=== PATIENT | female | born 1960 | race Caucasian/White ===

== ENCOUNTER 2018-11-10 03:41 | Emergency (ER) | payer OTHER, SELFPAY ==
[2018-11-10 03:45] VITALS: BP 155/85; PULSE 76; RESP 18; TEMP 37.1; O2SAT 99
--- NOTE | 2018-11-10 03:59 | W.ED.GENAD ---
Discharge Plan Disposition Patient Disposition: HOME Condition: Good Discharge Details Chief Complaint: Abd Prob Clinical Impression: Calculus of proximal left ureter Primary Care Provider: Edson Hicks ED Provider: Crow Saldana Home Meds and New Rx's Prescriptions: New ibuprofen 600 mg tablet 600 mg PO QID Qty: 20 RF: 0 hydrocodone-acetaminophen 5-300 mg tablet 1 tab PO Q4H PRN (Reason: pain) Qty: 10 RF: 0 ondansetron 4 mg tablet,disintegrating 4 mg PO QID PRN (Reason: nausea and vomiting) Qty: 10 RF: 0 Continued calcium carbonate-vitamin D3 1 EACH tablet 1 tab PO DAILY RF: 0 L.acidoph, paracasei,B. lactis 1 EACH capsule 1 cap PO DAILY RF: 0 cetirizine 10 mg Tablet 10 mg PO DAILY RF: 0 Discharge Instructions Instructions: Renal Colic (ED) Additional Instructions: Please strain your urine over the weekend. Stay hydrated. Take ibuprofen [id number]. Use hydrocodone/acetaminophen for breakthrough pain. Use ondansetron for nausea and vomiting. Follow-up with Dr. Millard call Monday for appointment. Return to the ED if you develop fever, uncontrolled pain, persistent vomiting. Referrals: Julio C Millard MD [ [facility] STAFF PHYSICIAN] - Medical Decision Making Patient with acute onset of left flank pain. Reports it is sharp and severe and she is unable to get comfortable. Highly suggestive of kidney stone. No prior history of kidney stones. IV established and fluids started. Toradol and Zofran given. CBC and chemistry obtained. Urinalysis and CT stone study ordered. 6:00 -patient arrives back from CAT scan much more comfortable. She has no pain. CBC and chemistries are unremarkable. CT scan shows a left proximal ureteral stone measuring approximately 4 mm with mild to moderate hydronephrosis. Urinalysis eventually obtained and shows no sign of infection. Patient has remained pain-free after Toradol. Patient will be discharged home with a strainer. She will be asked to follow-up with Dr. Millard. She is going to use ibuprofen qhnioz-wxd-cvoky for the weekend to try to control the pain. I will give her prescription for hydrocodone/acetaminophen for severe pain. She will use this only if necessary. I did review prescription monitoring database in which she has no entries. She is given the State information sheet and informed consent signed. We will also give her prescription for ondansetron ODT. She does not wish to take Flomax after discussion of its use and side effects. Patient to return to ED if she develops fever, uncontrolled pain, persistent vomiting. HPI General Mode of arrival: ambulatory. Date/Time Provider Initiated Documentation: 11/10/18 03:42. Limitations to Documentation: no limitations. Information obtained by: patient. HPI Narrative: Patient presents to ED with onset of left flank pain that woke her up this morning. Pain is described as severe. She cannot get comfortable. There is some radiation to the back. She has nausea but no vomiting. She had some sweats and chills. She has some urgency but no dysuria or hematuria. She has had UTIs in the distant past. She has never had a kidney stone. She is otherwise healthy. Finally came in after a couple of hours of discomfort and not being able to get comfortable at home. Related Data Home Medications Medication Instructions Recorded Confirmed L.acidoph, paracasei,B. lactis 1 cap PO DAILY 07/14/15 11/10/18 calcium carbonate-vitamin D3 1 tab PO DAILY 07/14/15 11/10/18 cetirizine 10 mg PO DAILY 11/10/18 11/10/18 hydrocodone-acetaminophen 1 tab PO Q4H PRN #10 tab 11/10/18 ibuprofen 600 mg PO QID #20 tab 11/10/18 ondansetron 4 mg PO QID PRN #10 tab 11/10/18 Previous Rx's Medication Instructions Recorded hydrocodone-acetaminophen 1 tab PO Q4H PRN #10 tab 11/10/18 ibuprofen 600 mg PO QID #20 tab 11/10/18 ondansetron 4 mg PO QID PRN #10 tab 11/10/18 Allergies Allergy/AdvReac Type Severity Reaction Status Date / Time levofloxacin AdvReac Unknown Agitation Unverified 10/29/15 14:55 Sulfa (Sulfonamide AdvReac Unknown Headache Unverified 10/29/15 14:55 Antibiotics) General Stated Complaint: Abd Prob WALDO: 3 Review of Systems Review of Systems 04/22 Review of Systems completed and is negative except as stated above in HPI (Systems reviewed: Const, Eyes, ENT, Resp, CV, GI, , MSK, Skin, Neuro) PFSH Surgical History section Social History Smoking/Tobacco Use Status: Never Alcohol Intake: never Drug use: Never Do you feel safe at home: Yes Do you feel safe in your relationship?: Yes Exam Narrative Exam Narrative: Vitals: A little hypertensive likely from discomfort. Afebrile. Const: WDWN female looks uncomfortable but not in distress. HEENT: NC/AT. Normal facial exam. Eyes: Normal conjunctiva and sclera. Neck: Supple. Trachea midline. Lungs: Normal respiratory effort. Lungs are clear. Cor: RRR without murmur/gallop. Good radial pulses. GI: Soft. NT/ND. No guarding or rebound. Back: Mild left CVAT. Neuro: A+O x 3. CN grossly in tact. Good strength and no focal deficit. Ext: No C/C/E. No deformity or tenderness. Skin: Warm and dry without rash. Course Vital Signs Temperature 98.8 F 11/10/18 03:45 Pulse 76 11/10/18 03:45 Respiratory Rate 18 11/10/18 03:45 Blood Pressure 155/85 H 11/10/18 03:45 Pulse Oximetry 99 11/10/18 03:45 Temperature 98.8 F 11/10/18 03:45 Temperature Source Tympanic 11/10/18 03:45 Pulse 76 11/10/18 03:45 Respiratory Rate 18 11/10/18 03:45 Respiratory Effort 11/10/18 03:45 Blood Pressure 155/85 H 11/10/18 03:45 Pulse Oximetry 99 11/10/18 03:45 Oxygen Delivery Method Room Air 11/10/18 03:45 Oxygen Flow Rate 0 11/10/18 03:45 Pain Level 9 11/10/18 03:45
--- NOTE | 2018-11-10 04:03 | ED.GENADUL_ITS ---
Discharge Plan Disposition Patient Disposition: HOME Condition: Good Discharge Details Chief Complaint: Abd Prob Clinical Impression: Calculus of proximal left ureter Primary Care Provider: Edson Hicks ED Provider: Crow Saldana Home Meds and New Rx's Prescriptions: New ibuprofen 600 mg tablet 600 mg PO QID Qty: 20 RF: 0 hydrocodone-acetaminophen 5-300 mg tablet 1 tab PO Q4H PRN (Reason: pain) Qty: 10 RF: 0 ondansetron 4 mg tablet,disintegrating 4 mg PO QID PRN (Reason: nausea and vomiting) Qty: 10 RF: 0 Continued calcium carbonate-vitamin D3 1 EACH tablet 1 tab PO DAILY RF: 0 L.acidoph, paracasei,B. lactis 1 EACH capsule 1 cap PO DAILY RF: 0 cetirizine 10 mg Tablet 10 mg PO DAILY RF: 0 Discharge Instructions Instructions: Renal Colic (ED) Additional Instructions: Please strain your urine over the weekend. Stay hydrated. Take ibuprofen [id number]-[id number]. Use hydrocodone/acetaminophen for breakthrough pain. Use ondansetron for nausea and vomiting. Follow-up with Dr. Millard call Monday for appointment. Return to the ED if you develop fever, uncontrolled pain, persistent vomiting. Referrals: Julio C Millard MD [ [facility] STAFF PHYSICIAN] - Medical Decision Making Patient with acute onset of left flank pain. Reports it is sharp and severe and she is unable to get comfortable. Highly suggestive of kidney stone. No prior history of kidney stones. IV established and fluids started. Toradol and Zofran given. CBC and chemistry obtained. Urinalysis and CT stone study o rdered. 6:00 -patient arrives back from CAT scan much more comfortable. She has no pain. CBC and chemistries are unremarkable. CT scan shows a left proximal ureteral stone measuring approximately 4 mm with mild to moderate hydronephrosis. Urinalysis eventually obtained and shows no sign of infection. Patient has remained pain-free after Toradol. Patient will be discharged home with a strainer. She will be asked to follow-up with Dr. Millard. She is going to use ibuprofen racdmi-ngr-obxlj for the weekend to try to control the pain. I will give her prescription for hydrocodone/acetaminophen for severe pain. She will use this only if necessary. I did review prescription monitoring database in which she has no entries. She is given the State information sheet and informed consent signed. We will also give her prescription for ondansetron ODT. She does not wish to take Flomax after discussion of its use and side effects. Patient to return to ED if she develops fever, uncontrolled pain, persistent vomiting. HPI General Mode of arrival: ambulatory . Date/Time Provider Initiated Documentation: 11/10/18 03:42 . Limitations to Documentation: no limitations . Information obtained by: patient . HPI Narrative: Patient presents to ED with onset of left flank pain that woke her up this morning. Pain is described as severe. She cannot get comfortable. There is some radiation to the back. She has nausea but no vomiting. She had some sweats and chills. She has some urgency but no dysuria or hematuria. She has had UTIs in the distant past. She has never had a kidney stone. She is otherwise healthy. Finally came in after a couple of hours of discomfort and not being able to get comfortable at home. Related Data Home Medications Medication Instructions Recorded Confirmed L.acidoph, paracasei,B. lactis 1 cap PO DAILY 07/14/15 11/10/18 calcium carbonate-vitamin D3 1 tab PO DAILY 07/14/15 11/10/18 cetirizine 10 mg PO DAILY 11/10/18 11/10/18 hydrocodone-acetaminophen 1 tab PO Q4H PRN #10 tab 11/10/18 ibuprofen 600 mg PO QID #20 tab 11/10/18 ondansetron 4 mg PO QID PRN #10 tab 11/10/18 Previous Rx's Medication Instructions Recorded hydrocodone-acetaminophen 1 tab PO Q4H PRN #10 tab 11/10/18 ibuprofen 600 mg PO QID #20 tab 11/10/18 ondansetron 4 mg PO QID PRN #10 tab 11/10/18 Allergies Allergy/AdvReac Type Severity Reaction Status Date / Time levofloxacin AdvReac Unknown Agitation Unverified 10/29/15 14:55 Sulfa (Sulfonamide AdvReac Unknown Headache Unverified 10/29/15 14:55 Antibiotics) General Stated Complaint: Abd Prob WALDO: 3 Review of Systems Review of Systems 04/22 Review of Systems completed and is negative except as stated above in HPI (Systems reviewed: Const, Eyes, ENT, Resp, CV, GI, , MSK, Skin, Neuro) PFSH Surgical History section Social History Smoking/Tobacco Use Status: Never Alcohol Intake: never Drug use: Never Do you feel safe at home: Yes Do you feel safe in your relationship?: Yes Exam Narrative Exam Narrative: Vitals: A little hypertensive likely from discomfort. Afebrile. Const: WDWN female looks uncomfortable but not in distress. HEENT: NC/AT. Normal facial exam. Eyes: Normal conjunctiva and sclera. Neck: Supple. Trachea midline. Lungs: Normal respiratory effort. Lungs are clear. Cor: RRR without murmur/gallop. Good radial pulses. GI: Soft. NT/ND. No guarding or rebound. Back: Mild left CVAT. Neuro: A+O x 3. CN grossly in tact. Good strength and no focal deficit. Ext: No C/C/E. No deformity or tenderness. Skin: Warm and dry without rash. Course Vital Signs Temperature 98.8 F 11/10/18 03:45 Pulse 76 11/10/18 03:45 Respiratory Rate 18 11/10/18 03:45 Blood Pressure 155/85 H 11/10/18 03:45 Pulse Oximetry 99 11/10/18 03:45 Temperature 98.8 F 11/10/18 03:45 Temperature Source Tympanic 11/10/18 03:45 Pulse 76 11/10/18 03:45 Respiratory Rate 18 11/10/18 03:45 Respiratory Effort 11/10/18 03:45 Blood Pressure 155/85 H 11/10/18 03:45 Pulse Oximetry 99 11/10/18 03:45 Oxygen Delivery Method Room Air 11/10/18 03:45 Oxygen Flow Rate 0 11/10/18 03:45 Pain Level 9 11/10/18 03:45
[2018-11-10] MEDS: Normal Saline 1,000 ML 1000 ML IV (04:09)
[2018-11-10] MEDS: Ondansetron 4 MG/2 ML VIAL IVP (04:11)
[2018-11-10] MEDS: Ketorolac 30 MG/ML VIAL IVP (04:12)
[2018-11-10 04:23] LABS: Abs Immature Grans 0.02 k/cumm (0.0-0.09); Absolute Basophil Count 0.03 k/cumm (0.0-0.2); Absolute Eosinophil Count 0.04 k/cumm (0.0-0.7); Absolute Lymphocyte Count 1.19 k/cumm (1.2-3.4); Absolute Monocyte Count 0.41 k/cumm (0.11-0.7); Absolute Neutrophil Count 4.57 k/cumm (1.2-6.7); Basophils % 0.5; Eosinophils % 0.6; HCT 42.9 % (36.0-46.0); HGB 14.7 g/dL (12.0-15.5); Immature Grans % 0.3; Mean Corp. HGB Concentration 34.3 g/dL (32.0-36.0); Mean Corpuscular Hemoglobin 30.2 pg (27.0-33.0); Mean Corpuscular Volume 88.3 fL (80-95); Mean Platelet Volume 10.9 fL (8.0-11.0); Monocytes % 6.5; Neutrophils % 73.1; Platelet Count 198 x1000/uL (130-400); RBC 4.86 m/cumm (4.00-5.20); RBC Distribution Width 11.9 % (11.7-14.6); White Blood Cell Count 6.26 k/cumm (4.4-10.8)
--- NOTE | 2018-11-10 04:23 | DI.CT_ITS ---
SYMPTOM/DIAGNOSIS: LT FLANK PAIN ABDOMEN AND PELVIC CT: CT examination of the abdomen and pelvis was performed without contrast administration. Images obtained through the lung bases are unremarkable. Visualized portions of the liver and spleen appear intact. Pancreas is unremarkable in appearance. Gallbladder and bile ducts are CT normal. Small fat containing umbilical hernia noted. No other significant abdominal wall hernia is seen. No abdominal or pelvic adenopathy is seen. Normal aortic diameter noted. Normal appendix noted. No evidence of diverticulitis or bowel obstruction. [facility] structures appear intact. Right kidney and adrenal are unremarkable. No right ureteral calcification. On the left, there is a 4 mm. in diameter, obstructing proximal left ureteral stone with moderate hydronephrosis resulting. Left adrenal is unremarkable. CONCLUSION: Obstructing 4 mm. proximal stone on the left causing mild to moderate hydronephrosis.
--- NOTE | 2018-11-10 04:29 | DI.VRAD_ITS ---
EXAM: CT Abdomen and Pelvis Without Contrast EXAM DATE/TIME: 11/10/2018 4:00 AM CLINICAL HISTORY: 58 years old, female; Abdominal pain; Flank; Left TECHNIQUE: Imaging protocol: Axial computed tomography images of the abdomen and pelvis without contrast. Coronal and sagittal reformatted images were created and reviewed. Radiation optimization: All CT scans at this facility use at least one of these dose optimization techniques: automated exposure control; mA and/or kV adjustment per patient size (includes targeted exams where dose is matched to clinical indication); or iterative reconstruction. COMPARISON: No relevant prior studies available. FINDINGS: ABDOMEN: Liver: No suspicious lesions. Gallbladder and bile ducts: No acute or concerning findings. Pancreas: Unremarkable. Spleen: No suspicious lesions. Adrenals: Unremarkable. No suspicious nodule. Kidneys and ureters: 4 mm transverse diameter stone proximal left ureter causing [id number]-[id number] hydronephrosis. Stomach and bowel: Unremarkable. No inflammed or dilated loops. Appendix: No evidence of appendicitis. PELVIS: Bladder: Unremarkable as visualized. Reproductive: Unremarkable as visualized. ABDOMEN and PELVIS: Intraperitoneal space: No free air. No significant fluid collection. Bones/joints: No acute fracture. No dislocation. Soft tissues: Unremarkable. Vasculature: Unremarkable. Lymph nodes: Unremarkable. IMPRESSION: 4 mm stone proximal left ureter causing efbv-us-xmcboleo hydronephrosis. Dictated and Authenticated by: Sigifredo Taylor MD. Ordering:MONCHO Maria MD
[2018-11-10 04:30] LABS: Anion Gap 5.4 mmol/L (3-11); BUN 23 mg/dL (7-18); CO2 31.6 mmol/L (21.0-32.0); CREATININE 0.92 mg/dL (0.55-1.02); Calcium 9.4 mg/dL (8.5-10.1); Chloride 102 mmol/L (98-107); Glucose 144 mg/dL (70-100); Sodium 139 mmol/L (136-145)
[2018-11-10 05:26] LABS: Bilirubin Negative (Negative); Blood Large (Negative); Clarity Clear; Glucose Negative (Negative); Ketones Negative (Negative); Leukocyte Esterase Negative (Negative); Nitrite Negative (Negative); Urobilinogen 0.2 EU/dL (Up TO 0.2); pH 7.5 (5-8)
[2018-11-10 05:28] LABS: Bacteria Negative HPF (Negative); C & S Indicated? No; Casts Negative LPF (Negative); Crystals Negative HPF (Negative); Epithelial Cells Negative HPF (Negative); Mucus Negative (Negative); WBC 0-2 HPF (0-5)
[2018-11-10 06:14] VITALS: BP 128/72; PULSE 64; RESP 18; O2SAT 96
--- NOTE | 2018-11-10 06:15 | NUR.NOTE ---
Nursing Note: DC IV intact bleeding controlled. Discussed discharge instructions, Rx/OTC meds, strainer use, and follow up care with pt. Pt verbalized an understanding. Pt ambulated out the door with steady gait.
== END 2018-11-10 06:14 | disposition home or self-care (01) ==
PROVIDERS: Emergency Provider Emergency Medicine; PCP Family Medicine
DX: N13.2 Hydronephrosis with renal and ureteral calculous obstruction (principal)
CPT/HCPCS: 36415; 80048; 96361; 96374; 96375; 99284; 74176; 81003; 81015; 85025; J1885; J2405

== ENCOUNTER → 2018-11-15 14:06 | Outpatient (BNVA) | payer OTHER, SELFPAY | PROVIDERS: PCP Family Medicine; Visit Provider Urology | DX: N20.1 Calculus of ureter (principal); N13.30 Unspecified hydronephrosis | CPT/HCPCS: 99203; 99214 ==

== ENCOUNTER 2018-12-07 01:33 | Outpatient (CLI) | payer OTHER, SELFPAY ==
--- NOTE | 2018-12-07 08:08 | DI.RAD_ITS ---
SYMPTOM/DIAGNOSIS: CHECK PROGRESSION OF STONE, N20.1, LT URETERAL STONE KUB: Comparison CT scan is 11/10/18. On the supine view of the abdomen, there is an ovoid density projected over the lateral aspect of the left L 4 transverse process which may represent the ureteral stone. It does appear to be located distally to the CT scan from 11/10/18. Calcifications in the pelvis appear stable and are consistent with phleboliths. No organomegaly or bowel obstruction is seen. There is a small amount of stool retained throughout the colon.
== END 2018-12-07 01:53 ==
PROVIDERS: PCP Family Medicine; Visit Provider Urology
DX: N20.1 Calculus of ureter (principal)
CPT/HCPCS: 74018

== ENCOUNTER 2018-12-10 09:01 | Day surgery (SDC) | payer OTHER, SELFPAY ==
[2018-12-10 09:33] VITALS: BP 148/90; PULSE 69; RESP 16; TEMP 35.9; O2SAT 90
[2018-12-10] MEDS: Lactated Ringers 1,000 ML 80 ML IV (10:03)
--- NOTE | 2018-12-10 10:21 | DI.RAD_ITS ---
SYMPTOMS/DIAGNOSIS: HYDRONEPHROSIS DUE TO LT URETERAL STONE C-ARM FLUOROSCOPY: Fluoroscopy Time: 21.5sec,4.88mgy C-arm fluoroscopy was utilized by Dr. Millard. Please see Dr. Millard's procedure note. Hardcopies show placement of left ureteral stent.
[2018-12-10] MEDS: ceFAZolin 1 GM/50 ML BAG IVPB (10:52)
[2018-12-10] MEDS: Lidocaine 2% Jelly 6 ML SYR (10:55)
[2018-12-10] MEDS: Omnipaque 300 MG/ML 50 ML BTL (11:00)
--- NOTE | 2018-12-10 11:40 | W.PM.DSUDISC ---
Discharge Plan Disposition Patient Disposition: HOME Condition: Stable Discharge Details Attending Provider: Julio C Millard Primary Care Provider: None,None Home Meds and New Rx's Prescriptions: No Action hydrocodone-acetaminophen [Vicodin] 5-300 mg tablet 1 - 2 tab PO Q6H MDD 8 PRN (Reason: pain) Qty: 20 RF: 0 ondansetron 4 mg tablet,disintegrating 4 mg PO QID PRN (Reason: nausea and vomiting) Qty: 10 RF: 0 ibuprofen 600 mg tablet 600 mg PO QID Qty: 20 RF: 0 calcium carbonate-vitamin D3 1 EACH tablet 1 tab PO DAILY RF: 0 L.acidoph, paracasei,B. lactis 1 EACH capsule 1 cap PO DAILY RF: 0 cetirizine 10 mg Tablet 10 mg PO DAILY RF: 0 hydrocodone-acetaminophen 5-300 mg tablet 1 tab PO Q4H PRN (Reason: pain) Qty: 10 RF: 0 Discharge Instructions Additional Instructions: no need to strain urine pt will need to have her stent removed in 2 to 3 days - let my office know that pt has string on her stent pt will need f/u appt in 4 to 6 weeks for renal US and stone analysis review Activity:: Activity as Tolerated Shower/Bathe:: 24 hours Diet:: As Tolerated Discharge Orders Discharge Orders: Discharge Order (Routine); Ordered 12/10/18 Ordered By: Julio C Millard DS: Diagnosis Discharge Diagnosis (1) Left ureteral stone: Status: Acute
[2018-12-10 11:44] VITALS: BP 140/100; PULSE 94; RESP 21; TEMP 36.6; O2SAT 94
[2018-12-10 11:49] VITALS: BP 150/93; PULSE 85; RESP 12; TEMP 36.6; O2SAT 99
[2018-12-10 11:56] VITALS: BP 137/91; PULSE 84; RESP 12; TEMP 36.6; O2SAT 98
[2018-12-10 12:09] VITALS: BP 143/79; PULSE 67; RESP 16; TEMP 36.5; O2SAT 98
--- NOTE | 2018-12-10 12:27 | ROE_ITS ---
DATE OF PROCEDURE: December 10, 2018 PREOPERATIVE DIAGNOSIS: Left ureteral stone. POSTOPERATIVE DIAGNOSIS: Same. PROCEDURE: Cystoscopy; left retrograde pyelogram; left ureteral dilation; left ureteroscopy with sto ne extractions; insert left ureteral stent. SURGEON: Julio C Millard M.D. ANESTHESIA: General. COMPLICATIONS: None. ESTIMATED BLOOD LOSS: Minimal. FINDINGS: Left distal ureteral stones. HISTORY: This is a 58-year-old woman who initially presented to the Emergency Room with abdominal pa in. She was identified as having microscopic hematuria. She was evaluated with a non-contrast CT an d was found to have a proximal left ureteral stone. Over the past month she has not passed her stone. She is no longer having pain, but on KUB the stone only appears to have migrated slightly. She presents now for stone manipulation. OPERATIVE REPORT: The patient was brought to the Operating Room on 12/10/18. After successful inducti on of general anesthesia, she was placed in the dorsal lithotomy position. Her genitalia was prepped and draped. A 22 Albanian rigid cystoscope was passed through the urethra into the bladder. The bladder was inspec elayne with a 30-degree lens. Both ureteral orifices appeared normal. No blood was seen coming from either side. No stones were s een within the bladder. The left ureteral orifice was then cannulated with a 6 Albanian access catheter. A retrograde film was obtained by injecting Omnipaque through the access catheter under fluoroscopic guidance. There appeared to be a filling defect in the distal ureter, which would be consistent with her stone. The ureter above this filling defect was dilated. We then passed a Glidewire through the access catheter and maneuvered the wire up the rest of the ure ter. We removed the access catheter and cystoscope. I then attempted to pass the semi-rigid ureteroscope through the urethra and up the ureter. I was ab le to engage the scope into the ureteral orifice, but there was a narrowing in the distal ureter that made it difficult to pass the scope. We then used a UroMax balloon to dilate this area. The scope was then advanced quite easily. I was able to identify multiple stones in the distal ureter. Each of the stones were grasped in a Ze ro Tip stone basket and removed in their entirety. On re-inspection of the ureter there did appear to be some mucosal abrasions on the distal ureter. W e then elected to place a 4.8 Albanian variable-length stent into the ureter. We advanced the stent ov er the Guidewire. The proximal end was curled in the renal pelvis; the distal end was curled in the bladder. We left a safety string in place and brought the safety string through the urethra. We tuc ked the end of the string into the vagina. The patient tolerated the procedure well. There were no complications. We will plan on removing her stent in 2 to 3 days. We will follow-up with a renal ultrasound in 4 to 6 weeks.
[2018-12-10 12:45] VITALS: BP 141/89; PULSE 61; RESP 14; TEMP 34.7; O2SAT 97
[2018-12-12 12:02] LABS: Source: Left Ureter
== END 2018-12-10 13:37 | disposition home or self-care (01) ==
PROVIDERS: Visit Provider Urology
PROC: (CPT 52352; principal; 2018-12-10 10:30)
DX: N20.1 Calculus of ureter (principal); G47.33 Obstructive sleep apnea (adult) (pediatric)
CPT/HCPCS: 52352; 52332; 74420; 82365; J0690; J1100; J1885; J2250; J2405; Q9967

== ENCOUNTER → 2018-12-13 07:54 | Outpatient (BNVA) | payer OTHER, SELFPAY | PROVIDERS: Visit Provider Urology | DX: N20.1 Calculus of ureter (principal); Z48.816 Encounter for surgical aftercare following surgery on the genitourinary system | CPT/HCPCS: 99211; 99212 ==

== ENCOUNTER → 2019-01-21 09:58 | Outpatient (BNVA) | payer OTHER, SELFPAY | PROVIDERS: Visit Provider Urology | DX: N20.1 Calculus of ureter (principal); Z48.816 Encounter for surgical aftercare following surgery on the genitourinary system | CPT/HCPCS: 99213 ==

== ENCOUNTER 2019-11-25 01:08 | Outpatient (CLI) | payer OTHER, SELFPAY ==
--- NOTE | 2019-11-25 | DI.MAMMO_ITS ---
EXAM: MG MAMMO SCREENING CLINICAL HISTORY: SCREENING, Z12.39 TECHNIQUE: Bilateral full field digital CC and MLO mammographic images were obtained with 3D tomosyn thesis and utilizing computer aided detection (CAD). COMPARISON: Available for comparison. FINDINGS: Masses/Architectural Distortion: None seen. Microcalcifications: No suspicious pleomorphic-type are seen. Skin Thickening/Nipple Retraction: None. IMPRESSION: 1. No significant interval change with no specific features of malignancy noted. 2. Unless there is more urgent need, screening mammography is recommended, as per [place] [employer] guidelines. BI-RADS Category 1 - Negative Breast Density - Category B - Scattered areas of fibroglandular density A negative radiographic report should not delay biopsy if a dominant or clinically suspicious mass is present. Up to ten percent of cancers are not identified on mammography. A negative report may reinforce clinical impression. Adenosis and dense breasts may obscure an underlying neoplasm. False positive reports average 6 to 10%. Patient will receive a letter notifying them of these results.
== END 2019-11-25 01:28 ==
PROVIDERS: PCP Physician Assistant; Visit Provider Nurse Practitioner Family
DX: Z12.31 Encounter for screening mammogram for malignant neoplasm of breast (principal)
CPT/HCPCS: 77063; 77067

== ENCOUNTER 2020-03-02 19:22 | Outpatient (REF) | payer OTHER, SELFPAY ==
[2020-03-02 19:54] LABS: HGB 14.6 g/dL (11.2-15.7); MCH 29.8 pg (27.0-33.0); MCHC 33.2 % (32.0-36.0); MCV 89.8 fL (80-95); MPV 11.6 fL (8.0-11.0); Platelet Count 212 10^3/uL (130-400); RDW 11.4 % (11.7-14.6); RDW-SD 37.2 fL; WBC 4.03 10^3/uL (4.4-10.8)
[2020-03-02 20:16] LABS: ALT 28 U/L (14-59); AST 18 U/L (15-37); Albumin 3.8 g/dL (3.4-5.0); Alkaline Phosphatase 68 U/L (46-116); Anion Gap 7.9 mmol/L (3-11); BUN 19 mg/dL (7-18); Bilirubin, Total 0.4 mg/dL (0.2-1.0); CO2 26.1 mmol/L (21.0-32.0); CREATININE 0.73 mg/dL (0.55-1.02); Calculated LDL 131 mg/dL (<100); Chloride 107 mmol/L (98-107); Cholesterol 214 mg/dL (<200); Glucose 98 mg/dL (74-106); HDL Cholesterol 64 mg/dL (40-60); Potassium 4.2 mmol/L (3.5-5.1); Sodium 141 mmol/L (136-145); Total Protein 6.7 g/dL (6.4-8.2); Triglyceride 99 mg/dL (<150)
== END 2020-03-02 19:42 ==
LOC: NCHCN 19:22
PROVIDERS: PCP Physician Assistant; Visit Provider Physician Assistant
DX: Z00.00 Encounter for general adult medical examination without abnormal findings (principal); Z13.220 Encounter for screening for lipoid disorders; Z13.228 Encounter for screening for other metabolic disorders
CPT/HCPCS: 80053; 80061; 85027

== ENCOUNTER 2020-03-17 09:23 | Outpatient (REF) | payer OTHER, SELFPAY ==
--- NOTE | 2020-03-17 08:15 | PAPFT_PTH ---
PATIENT: Danica Lomas LOC: [facility] U#:[id number] AGE/SX: 59/F ROOM: RE03/17/[address]: Ascencion Laura : 1960 BED: DIS: 03/17/2020 SPEC #: [id number] RECD: 03/17/20 17:41 STATUS: HEIDY REQ #: [id number] NIESHA: 03/17/20 08:[address]: Ascencion Laura DEPT: [facility] Cytology RECD BY: Tessie Jack Tissues: 1 - CX/ENDOCX FOR PAP SMEARS Procedures: PAP THIN PREP/UVM Screening Comments: [id number] (UNSATISFACTORY FOR EVALUATION)
== END 2020-03-17 09:43 ==
LOC: NCHCN 09:23
PROVIDERS: PCP Physician Assistant; Visit Provider Physician Assistant
DX: R87.615 Unsatisfactory cytologic smear of cervix (principal)
CPT/HCPCS: 88142

== ENCOUNTER 2020-07-27 20:48 | Outpatient (REF) | payer OTHER, SELFPAY ==
[2020-07-28 13:31] LABS: COVID-19 RT-PCR UVMMC Result Negative (Negative)
== END 2020-07-27 21:08 ==
LOC: NCHCN 20:48
PROVIDERS: PCP Physician Assistant; Visit Provider Nurse Practitioner Family
DX: J02.9 Acute pharyngitis, unspecified (principal)
CPT/HCPCS: U0003

== ENCOUNTER 2021-04-14 01:48 | Outpatient (CLI) | payer OTHER, SELFPAY ==
--- NOTE | 2021-04-14 | DI.MAMMO_ITS ---
Exam(s) MAMMO SCREENING EXAM: MAMMO SCREENING CLINICAL HISTORY: SCREENING,Z12.39 TECHNIQUE: Bilateral full field digital CC and MLO mammographic images were obtained with 3D tomosyn thesis and utilizing computer aided detection (CAD). COMPARISON: Available for comparison. FINDINGS: Masses/Architectural Distortion: None seen. Microcalcifications: No suspicious pleomorphic-type are seen. Skin Thickening/Nipple Retraction: None. IMPRESSION: 1. No significant interval change with no specific features of malignancy noted. 2. Unless there is more urgent need, screening mammography is recommended, as per [place] [employer] guidelines. BI-RADS Category 1 - Negative Breast Density - Category B - Scattered areas of fibroglandular density Breast density category C or D implies that the patient has dense breast tissue. Dense breast tissue is very common and is not abnormal but dense breast tissue can make it harder to find cancer on a ma mmogram. Also, dense breast tissue may increase their breast cancer risk. This information about the result of the mammogram report was provided to the patient to raise their awareness. Use this report when you speak with the patient about their risks for breast cancer, which includes their family hist ory. At that time, you may recommend for more screening tests (Ultrasound or MRI) as they might be us eful based on their risk. A negative radiographic report should not delay biopsy if a dominant or clinically suspicious mass is present. Up to ten percent of cancers are not identified on mammography. A negative report may reinforce clinical impression. Adenosis and dense breasts may obscure an underlying neoplasm. False positive reports average 6 to 10%. Patient will receive a letter notifying them of these results.
== END 2021-04-14 02:08 ==
PROVIDERS: PCP Physician Assistant; Visit Provider Physician Assistant
DX: Z12.31 Encounter for screening mammogram for malignant neoplasm of breast (principal)
CPT/HCPCS: 77063; 77067

== ENCOUNTER 2022-03-22 16:51 | Outpatient (REF) | payer OTHER, SELFPAY ==
[2022-03-22 15:37] LABS: Anion Gap 8.9 mmol/L (3-11); BUN 15 mg/dL (7-18); CO2 28.1 mmol/L (21.0-32.0); CREATININE 0.8 mg/dL (0.55-1.02); Calcium 9.9 mg/dL (8.5-10.1); Calculated LDL 109 mg/dL (<100); Chloride 103 mmol/L (98-107); Cholesterol 199 mg/dL (<200); Glucose 102 mg/dL (74-106); HDL Cholesterol 59 mg/dL (40-60); Sodium 140 mmol/L (136-145); Triglyceride 155 mg/dL (<150)
[2022-03-23 10:32] LABS: HIV-1/2 Ag & Ab Screen Negative (Negative)
[2022-03-23 10:37] LABS: Hepatitis C Ab w Rflx HCV PCR Negative (Negative)
== END 2022-03-22 16:52 | disposition home or self-care (01) ==
LOC: NCHCN 16:51
PROVIDERS: PCP Physician Assistant; Visit Provider Physician Assistant
DX: Z11.4 Encounter for screening for human immunodeficiency virus [HIV] (principal); Z11.59 Encounter for screening for other viral diseases; Z00.00 Encounter for general adult medical examination without abnormal findings
CPT/HCPCS: 80048; 80061; 86803; 87389

== ENCOUNTER → 2022-04-19 02:25 | Outpatient (CLI) | payer OTHER, SELFPAY ==
--- NOTE | 2022-04-19 07:40 | DI.MAMMO_ITS ---
Exam(s) MAMMO SCREENING EXAM: MAMMO SCREENING CLINICAL HISTORY: SCREENING, Z12.39 TECHNIQUE: Bilateral full field digital CC and MLO mammographic images were obtained with 3D tomosyn thesis and utilizing computer aided detection (CAD). COMPARISON: Available for comparison. FINDINGS: Masses/Architectural Distortion: None seen. Microcalcifications: No suspicious pleomorphic-type are seen. Skin Thickening/Nipple Retraction: None. IMPRESSION: 1. No significant interval change with no specific features of malignancy noted. 2. Unless there is more urgent need, screening mammography is recommended, as per [employer] guidelines. BI-RADS Category 1 - Negative Breast Density - Category B - Scattered areas of fibroglandular density Breast density category C or D implies that the patient has dense breast tissue. Dense breast tissue is very common and is not abnormal but dense breast tissue can make it harder to find cancer on a ma mmogram. Also, dense breast tissue may increase their breast cancer risk. This information about the result of the mammogram report was provided to the patient to raise their awareness. Use this report when you speak with the patient about their risks for breast cancer, which includes their family hist ory. At that time, you may recommend for more screening tests (Ultrasound or MRI) as they might be us eful based on their risk. A negative radiographic report should not delay biopsy if a dominant or clinically suspicious mass is present. Up to ten percent of cancers are not identified on mammography. A negative report may reinforce clinical impression. Adenosis and dense breasts may obscure an underlying neoplasm. False positive reports average 6 to 10%. Patient will receive a letter notifying them of these results.
== END ==
PROVIDERS: PCP Physician Assistant; Visit Provider Physician Assistant
DX: Z12.31 Encounter for screening mammogram for malignant neoplasm of breast (principal)
CPT/HCPCS: 77063; 77067

== ENCOUNTER 2023-05-01 13:34 | Outpatient (REF) | payer OTHER, SELFPAY ==
[2023-05-01 17:28] LABS: HCT 43.6 % (36.0-46.0); HGB 14.7 g/dL (11.2-15.7); MCH 29.8 pg (27.0-33.0); MCHC 33.7 % (32.0-36.0); MCV 88 fL (80-95); MPV 11.8 fL (8.0-11.0); Platelet Count 235 10^3/uL (130-400); RBC 4.93 10^6/uL (3.93-5.22); RDW 11.9 % (11.7-14.6); RDW-SD 37.9 fL
[2023-05-01 17:55] LABS: Anion Gap 11.2 mmol/L (3-11); BUN 12 mg/dL (7-18); CO2 22.8 mmol/L (21.0-32.0); CREATININE 0.6 mg/dL (0.55-1.02); Calcium 9.2 mg/dL (8.5-10.1); Calculated LDL 135 mg/dL (<100); Chloride 108 mmol/L (98-107); Cholesterol 211 mg/dL (<200); Estimated GFR 102.06 (mL/min/1.73m2); Glucose 106 mg/dL (74-106); HDL Cholesterol 58 mg/dL (40-60); Potassium 4.2 mmol/L (3.5-5.1); Sodium 142 mmol/L (136-145); Triglyceride 94 mg/dL (<150)
== END 2023-05-01 13:35 | disposition home or self-care (01) ==
LOC: NCHCN 13:34
PROVIDERS: PCP Physician Assistant; Visit Provider Physician Assistant
DX: Z00.00 Encounter for general adult medical examination without abnormal findings (principal)
CPT/HCPCS: 80048; 80061; 85027

== ENCOUNTER → 2023-05-17 00:37 | Outpatient (CLI) | payer OTHER, SELFPAY ==
--- NOTE | 2023-05-17 07:43 | DI.MAMMO_ITS ---
Exam(s) MAMMO SCREENING EXAM: MAMMO SCREENING CLINICAL HISTORY: SCREENING MAMMO FOR BREAST CANCER Z12.39 TECHNIQUE: Bilateral full field digital CC and MLO mammographic images were obtained with 3D tomosyn thesis and utilizing computer aided detection (CAD). COMPARISON: Available for comparison. FINDINGS: Masses/Architectural Distortion: None seen. Microcalcifications: No suspicious pleomorphic-type are seen. Skin Thickening/Nipple Retraction: None. IMPRESSION: 1. No significant interval change with no specific features of malignancy noted. 2. Unless there is more urgent need, screening mammography is recommended, as per [employer] guidelines. BI-RADS Category 1 - Negative Breast Density - Category B - Scattered areas of fibroglandular density Breast density category C or D implies that the patient has dense breast tissue. Dense breast tissue is very common and is not abnormal but dense breast tissue can make it harder to find cancer on a ma mmogram. Also, dense breast tissue may increase their breast cancer risk. This information about the result of the mammogram report was provided to the patient to raise their awareness. Use this report when you speak with the patient about their risks for breast cancer, which includes their family hist ory. At that time, you may recommend for more screening tests (Ultrasound or MRI) as they might be us eful based on their risk. A negative radiographic report should not delay biopsy if a dominant or clinically suspicious mass is present. Up to ten percent of cancers are not identified on mammography. A negative report may reinforce clinical impression. Adenosis and dense breasts may obscure an underlying neoplasm. False positive reports average 6 to 10%. Patient will receive a letter notifying them of these results.
== END ==
PROVIDERS: PCP Physician Assistant; Visit Provider Physician Assistant
DX: Z12.31 Encounter for screening mammogram for malignant neoplasm of breast (principal); R92.323 Mammographic fibroglandular density, bilateral breasts
CPT/HCPCS: 77063; 77067

== ENCOUNTER → 2023-11-22 09:45 | Outpatient (CLI) | payer OTHER, SELFPAY ==
--- NOTE | 2023-11-22 | DI.RAD_ITS ---
Exam(s) XR KNEE RT 3V AP,LAT,ELISABETH EXAM: XR KNEE RT 3V AP,LAT,ELISABETH CLINICAL HISTORY: PAIN RT KNEE M25.561. TECHNIQUE: 2D digital imaging was performed of the right knee. Three views obtained. AP, lateral an d PA tunnel views were obtained. COMPARISON: CR XR ABDOMEN FLAT PLATE from 12/07/2018 FINDINGS: BONES: No acute fracture is present. No bony destructive lesion is seen. JOINTS: There is moderate narrowing of the medial femoral tibial joint. There is also narrowing of t he patellofemoral joint. There osteophytes seen at the posterior patella and the medial femoral tibi al joint. There is a small joint effusion. SOFT TISSUE: Normal. IMPRESSION: There are degenerative changes seen in the right knee. DATA REPOSITORY: RADIATION DOSE DELIVERED:
== END ==
PROVIDERS: PCP Physician Assistant; Visit Provider Physician Assistant
DX: M17.11 Unilateral primary osteoarthritis, right knee (principal)
CPT/HCPCS: 73562

== ENCOUNTER → 2024-02-01 14:21 | Outpatient (BNVA) | payer OTHER, SELFPAY | PROVIDERS: PCP Physician Assistant; Referring Provider Physician Assistant; Visit Provider Student in an Organized Health Care Education/Training Program | DX: M17.11 Unilateral primary osteoarthritis, right knee (principal); M72.2 Plantar fascial fibromatosis | CPT/HCPCS: 20550; 99203; J1010 ==

== ENCOUNTER 2024-05-08 12:17 | Outpatient (REF) | payer OTHER, SELFPAY ==
[2024-05-08 17:16] LABS: Anion Gap 9.1 mmol/L (3-11); BUN 17 mg/dL (7-18); CO2 27.9 mmol/L (21.0-32.0); CREATININE 0.7 mg/dL (0.55-1.02); Calcium 9.3 mg/dL (8.5-10.1); Calculated LDL 130 mg/dL (<100); Chloride 106 mmol/L (98-107); Cholesterol 235 mg/dL (<200); Estimated GFR 97.72 (mL/min/1.73m2); Glucose 88 mg/dL (74-106); HDL Cholesterol 71 mg/dL (40-60); Potassium 4.6 mmol/L (3.5-5.1); Sodium 143 mmol/L (136-145); Triglyceride 170 mg/dL (<150)
[2024-05-08 17:39] LABS: Hemoglobin A1C 5.8 % (<5.7)
== END 2024-05-08 12:18 | disposition home or self-care (01) ==
LOC: NCHCN 12:17
PROVIDERS: PCP Physician Assistant; Visit Provider Physician Assistant
DX: E78.5 Hyperlipidemia, unspecified (principal); Z13.1 Encounter for screening for diabetes mellitus
CPT/HCPCS: 80048; 80061; 83036

== ENCOUNTER 2024-05-20 12:41 | Emergency (ER) | payer OTHER, SELFPAY ==
[2024-05-20] VITALS (28 sets, daily range): BP systolic 128–164; BP diastolic 71–113; PULSE 67–101; RESP 10–20; TEMP 36.9–37; O2SAT 94–100
--- NOTE | 2024-05-20 13:00 | RT.EKG_ITS ---
APPROVED REPORT Exam: Resting ECG Reason for Exam: dizziness Patient Location: E HR:79 bpm ECG Measurements Heart Rate 79 AXIS OH 150 P 29 QRSd 84 QRS 35 QT 369 T 10 QTc 423 Conclusion Sinus rhythm 79 normal axis no stemi
--- OUTSIDE RECORDS SUMMARY | 2024-05-20 13:23 | XMS_ITS | Encounter Summary ---
Author Organization [facility] Address [address] [place] [address] Care Team Providers Care Park Interpretive Ranger Name Role Phone Unknown, Provider Primary Care Provider Unava ilable Encounter Details Date Type Department Care Team (Late st Contact Info) Description 07/27/2020 Lab Requisition [facility] Pathology & Laboratory Medicine - [address] [address] Outr Resulting Lab, Provider Social History Tobacco Use Types Packs/Day Years Used Date Smoking Tobacco: Never Assessed Comments Unknown Sex and Gender Information Value Date Recorded Sex Assigned at Not on file Legal Sex Female 18:55 EST Gender Identity Not on file Sexual Orientation Not on file documented as of this encounter Plan of Treatment Not on file documented as of this encounter Procedures Procedure Name Priority Date/Time Associated Diagnosis Comments ZZCOVID-19 TEST [facility] PCR Today 07/27/2020 15:51 EST COVID-19 TESTING Routine 07/27/2020 15:5 1 EST documented in this encounter Results * COVID-19 TEST [facility] PCR (07/27/2020 15:51 EST) Swab ENTIRE NASOPHARYNX / Unknown 07/27/2020 15:51 EST 07/27/2020 20:32 EST us Provider Outr Resulting Lab MICROBIOLOGY - GENER AL ORDERABLES Final Result [facility] [address] [place] [address] * COVID-19 TESTING (07/27/2020 15:51 EST) COVID-19 rt-PCR Result Negative Negative 07/28/2020 13:23 EST [facility] Comment: Negative results do not preclude 2019-nCoV infection and should not be used as the sole basis for treatment or other patient management decisions. Negative results must be combined with clinical observations, patient history, and epidemiological information. This test was developed and its performance characteristics determined by [facility]. It has not been cleared or approved by the US Food and Drug Administration. FDA does not require this test to go through premarket FDA review. This test is used for clinical purposes. It should not be regarded as investigational or for research. This laboratory is certified under the Clinical Laboratory Improvement Amendments (CLIA) as qualified to perform high complexity clinical laboratory testing. This test is based on the [facility] COVID-19 Emergency Use Authorization (EUA) assay, with minor modification as defined by the FDA Performed on the [employer] 7 Flex RT-PCR System. Performing Lab [facility] 07/28/2020 13:23 EST [facility] Swab 07/27/2020 15:5 1 EST 07/27/2020 20:32 EST us Provider Outr Resulting Lab MICROBIOLOGY - GENER AL ORDERABLES Final Result [facility] [address] [place] [address] documented in this encounter Visit Diagnoses Not on filedocumented in this encounter Care Teams Park Interpretive Ranger Relationship Specialty Start Date End Date Unknown, Provider, PCP - General 10/06/11 documented as of this encounter
--- OUTSIDE RECORDS SUMMARY | 2024-05-20 13:23 | XMS_ITS | Clinical Summary ---
Author Organization [facility] Address [address] [place] [address] Care Team Providers Care Lan Support Specialist Name Role Phone Unknown, Provider Primary Care Provider Unava ilable Social History Tobacco Use Types Packs/Day Years Used Date Smoking Tobacco: Never Assessed Comments Unknown Sex and Gender Information Value Date Recorded Sex Assigned at Not on file Legal Sex Female 18:55 EST Gender Identity Not on file Sexual Orientation Not on file Plan of Treatment Health Maintenance Due Date Last Done Comments RSV Immunization ( o r 60+ Years) (1 - 1-dose 60+ series) 2021 COVID-19 Vaccine (2022- season) 2023 Hepatitis C Screen Completed 03/22/2022 Procedures Procedure Name Priority Date/Time Associated Diagnosis Comments HEPATITIS C AB W REFLEX TO HCV RNA BY PCR Routine 03/22/2022 8:58 EDT from Last 3 Months or Most Recently Relevant to Health Maintenance Results * HEPATITIS C AB W REFLEX TO HCV RNA BY PCR (03/22/2022 8:58 EDT) Hep C Antibody Negative Negative 03/23/2022 10:33 EDT [facility] Blood VENOUS BLOOD / Unknown 03/22/2022 8:58 EDT 03/22/2022 21:25 EDT us Provider Outr Resulting Lab CHEMISTRY & BLOOD GA S ORDERABLES Final Result [facility] [address] [place] [address] from Last 3 Months or Most Recently Relevant to Health Maintenance Care Teams Lan Support Specialist Relationship Specialty Start Date End Date Unknown, Provider, PCP - General 10/06/11
--- OUTSIDE RECORDS SUMMARY | 2024-05-20 13:23 | XMS_ITS | Referral Summary ---
Author Organization [facility] Address [address] [place] [address] Care Team Providers Care Oil Well Services Superintendent Name Role Phone Unknown, Provider Primary Care Provider Unava ilable Social History Tobacco Use Types Packs/Day Years Used Date Smoking Tobacco: Never Assessed Comments Unknown Sex and Gender Information Value Date Recorded Sex Assigned at Not on file Legal Sex Female 18:55 EST Gender Identity Not on file Sexual Orientation Not on file Plan of Treatment Not on file Procedures Procedure Name Priority Date/Time Associated Diagnosis Comments HEPATITIS C AB W REFLEX TO HCV RNA BY PCR Routine 03/22/2022 8:58 EDT from Last 3 Months or Most Recently Relevant to Health Maintenance Results * HEPATITIS C AB W REFLEX TO HCV RNA BY PCR (03/22/2022 8:58 EDT) Hep C Antibody Negative Negative 03/23/2022 10:33 EDT [facility] Blood VENOUS BLOOD / Unknown 03/22/2022 8:58 EDT 03/22/2022 21:25 EDT us Provider Outr Resulting Lab CHEMISTRY & BLOOD GA S ORDERABLES Final Result [facility] [address] [place] [address] from Last 3 Months or Most Recently Relevant to Health Maintenance Care Teams Oil Well Services Superintendent Relationship Specialty Start Date End Date Unknown, Provider, PCP - General 10/06/11
--- OUTSIDE RECORDS SUMMARY | 2024-05-20 13:23 | XMS_ITS | Encounter Summary ---
Author Organization [facility] Address [address] [place] [address] Care Team Providers Care Pipe Fitter Gas Pipe Name Role Phone Unknown, Provider Primary Care Provider Tereza ilkelvin Encounter Details Date Type Department Care Team (Late st Contact Info) Description 03/22/2022 Lab Requisition [facility] Pathology & Laboratory Medicine - [facility] [address] [place] [address] Outr Resulting Lab, Provider Social History Tobacco [...] Procedure Name Priority Date/Time Associated Diagnosis Comments HIV 1/2 ANTIGEN AND ANTIBODY, 4TH GENERATION Routine 03/22/2022 8:58 EDT documented in this encounter Results * HIV 1/2 ANTIGEN AND ANTIBODY, 4TH GENERATION (03/22/2022 8:58 EDT) HIV 1 and 2 Antibody/p24 Antigen, 4th Generation Negative Negative 03/23/2022 10:28 EDT [facility] Comment:If acute HIV-1 infec tion is suspected in a high risk patient, submit plasma specimen for HIV-1 RNA quantitation test. Blood VENOUS BLOOD / Unknown 03/22/2022 8:58 EDT 03/22/2022 21:25 EDT Narrative [facility] - 03/23/2022 10:28 EDT Fourth Generation assay performed on the Siemens VC4Africaaur XPT. us Provider Outr Resulting Lab IMMUNOLOGY AND SEROL OGY ORDERABLES Final Result [facility] [address] [place] [address] documented in this encounter Visit Diagnoses Not on filedocumented in this encounter Care Teams Pipe Fitter Gas Pipe Relationship Specialty Start Date End Date Unknown, Provider, PCP - General 10/06/11 documented as of this encounter
--- OUTSIDE RECORDS SUMMARY | 2024-05-20 13:23 | XMS_ITS | Encounter Summary ---
Author Organization [facility] Address [address] [place] [address] Care Team Providers Care Lime Kiln Operator Name Role Phone Unknown, Provider Primary Care Provider Unava ilable Encounter Details Date Type Department Care Team (Late st Contact Info) Description 03/22/2022 Lab Requisition [facility] Pathology & Laboratory Medicine - [facility] [address] [place] [address] Outr Resulting Lab, Provider Social History Tobacco [...] RNA BY PCR Routine 03/22/2022 8:58 EDT documented in this encounter Results * HEPATITIS C AB W REFLEX TO HCV RNA BY PCR (03/22/2022 8:58 EDT) Hep C Antibody Negative Negative 03/23/2022 10:33 EDT [facility] Blood VENOUS BLOOD / Unknown 03/22/2022 8:58 EDT 03/22/2022 21:25 EDT us Provider Outr Resulting Lab CHEMISTRY & BLOOD GA S ORDERABLES Final Result [facility] [address] [place] [address] documented in this encounter Visit Diagnoses Not on filedocumented in this encounter Care Teams Lime Kiln Operator Relationship Specialty Start Date End Date Unknown, Provider, PCP - General 10/06/11 documented as of this encounter
--- OUTSIDE RECORDS SUMMARY | 2024-05-20 13:23 | XMS_ITS | Encounter Summary ---
Author Organization [facility] Address [address] [place] [address] Care Team Providers Care Klystrom Tube Tester Name Role Phone Unknown, Provider Primary Care Provider Unava ilable Encounter Details Date Type Department Care Team (Late st Contact Info) Description 10/04/2011 Results Only [facility] [phone] Magdalena Franco, SENIOR FINANCIAL REPORTING ACCOUNTANT [address] [place] [address] Social History Tobacco Use Types Packs/Day Years [...] Procedure Name Priority Date/Time Associated Diagnosis Comments PAP TEST- RESULT ONLY Routine 10/04/2011 0:00 EDT documented in this encounter Results * PAP TEST- RESULT ONLY (10/04/2011 0:00 EDT) Pathology Report: CYTOPATHOLOGY REPORT Reports generated via electronic interface contain original data; however they are lacking the format of the original report. Caution should be taken when reading/interpreti ng unformatted reports. Name: ? DANICA FISCHER ? Accession #: ? [id number] : ? 1960 (Age: 51) ??F ?Collect Date: ? 10/04/2011 Location: ? [facility] ? Receive Date: ? 10/06/2011 Provider: ?MAGDALENA FRANCO TOOL SALVAGE WORKER Copy to: ? Specimen/Source: ?Pap Test, Cervix/Endocervix, ThinPrep Imaging System with manual evaluation Last Menstrual Period: ? 09/27/11 Other: ? Additional clinical information: Perimenopausal ? SPECIMEN ADEQUACY ? Satisfactory for Evaluation - transformation zone component present GENERAL CATEGORIZATION ? Negative for Intraepithelial Lesion or Malignancy INTERPRETATION ? Reactive cellular changes associated with inflammation present (includes repair). Fungal organisms present morphologically consistent with Lizabeth species. ? Document reviewed and electronically signed by: ? EVITA MARTINEZ MD ? Report Date: ??10/11/2011 11:12 End of Report [facility] 10/04/2011 10/06/2011 us Magdalena Franco SENIOR FINANCIAL REPORTING ACCOUNTANT PATHOLOGY ORDERABLES Final Re sult [facility] [address] [place] [address] documented in this encounter Visit Diagnoses Not on filedocumented in this encounter Care Teams Klystrom Tube Tester Relationship Specialty Start Date End Date Unknown, Provider, PCP - General 10/06/11 documented as of this encounter
--- OUTSIDE RECORDS SUMMARY | 2024-05-20 13:23 | XMS_ITS | Encounter Summary ---
Author Organization [facility] Address [address] [place] [address] Care Team Providers Care Animal Ride Manager Name Role Phone Unknown, Provider Primary Care Provider Unava ilable Encounter Details Date Type Department Care Team (Latest Contact Info) Description 03/19/2020 Lab Requisition [facility] Pathology & Laboratory Medicine - [facility] [address] [place] [address] Ascencion Laura, [facility] [address] [place] [address] Encounter for general adult medical examination without abnormal findings; Encounter for screening for malignant neoplasm of cervix; Encounter for screening for human papillomavirus (HPV) Social History Tobacco Use Types Packs/Day Years [...] Name Priority Date/Time Associated Diagnosis Comments PAP TEST Today 03/17/2020 8:15 EDT Encounter for general adult medical examination without abnormal findings Encounter for screening for malignant neoplasm of cervix Encounter for screening for human papillomavirus (HPV) documented in this encounter Results * PAP TEST (03/17/2020 8:15 EDT) Specimens A. Cervix and/or Endocervix , ThinPrep Imaging System with Manual Evaluation 03/27/2020 10:35 EDT [facility] Specimen Adequacy Unsatisfactory for evaluation - insufficient numbers of squamous epithelial cells (less than 10% of expected cellularity) possibly due to lubricant. 03/27/2020 10:35 EDT [facility] General Categorization Unsatisfactory 03/27/2020 10:35 EDT [facility] Educational Comments Unsatisfactory - Specimen processed and examined, but unsatisfactory for evaluation of epithelial abnormality. Recommend Pap test in 2-4 months as stated in ASCCP's 2012 Updated Guidelines. HPV testing will not be performed due to the potential for false negative results. 03/27/2020 10:35 EDT [facility] Attestation . 03/27/2020 10:35 T [facility] at 1035 Clinical History NONE 03/27/20 20 10:35 EDT [facility] Performing Lab [facility] 03/27/2020 10:35 T [facility] Scanned Images 03/27/2020 10:35 T [facility] Papanicolaou smear specimen (specimen) CERVIX UTERI STRUCTURE / Unknown 03/17/2020 8:15 EDT 03/19/2020 11:07 EDT us [facility] PATHOLOGY ORDERABLES Denise l Result [facility] [address] [place] [address] documented in this encounter Visit Diagnoses Diagnosis Encounter for general adult medical examination without abnormal findings Unspecified general medical examination Encounter for screening for malignant neoplasm of cervix Screening for malignant neoplasm of the cervix Encounter for screening for human papillomavirus (HPV) Special screening examination for human papillomavirus (HPV) documented in this encounter Care Teams Animal Ride Manager Relationship Specialty Start Date End Date Unknown, Provider, PCP - General 10/06/11 documented as of this encounter
--- NOTE | 2024-05-20 13:30 | DI.CT_ITS ---
Exam(s) CT BRAIN NECK CTA EXAM: CT BRAIN NECK CTA CLINICAL HISTORY: DIZZINESS. TECHNIQUE: Imaging Protocol: Axial CT angiography was performed with multi-slice acquisition and mu lti-planar and/or 3D reconstructions. CONTRAST MATERIAL: Intravenous: Omnipaque 350 contrast volume:70 mL COMPARISON: No exams were available for comparison FINDINGS: CT Head W/O and W: Ventricles and Extra axial spaces: Normal in size and morphology for the patient's age. Hemorrhage: None. Cerebral parenchyma: No evidence of an acute territorial infarct. No mass effect is identified. Midline shift: None. Brainstem/Cerebellum: Normal. Calvarium: Normal. Visualized Paranasal sinuses/Mastoids: There is mild mucosal thickening in the right sphenoid sinus. The remaining visualized paranasal sinuses are clear. The mastoid air cells are well pneumatized. Soft Tissues: Unremarkable. Enhancement: Unremarkable. CTA Neck W: Common Carotid: Right: No dissection, occlusion or significant stenosis. Left: No dissection, occlusion or significant stenosis. External Carotid: Right: No occlusion or significant stenosis. Left: No occlusion or significant stenosis. Internal Carotid: Right: No dissection, occlusion or significant stenosis. Left: No dissection, occlusion or significant stenosis. Minimal atherosclerosis at the origin of the left internal carotid artery. Vertebral Artery: Right: No dissection, occlusion or significant stenosis. Left: No dissection, occlusion or significant stenosis. Lung Apices: No infiltrates are seen in the lung apices. Bones: Within normal limits for the patient's age. Soft Tissues: Normal. Thyroid gland: Unremarkable. CTA Brain W: Internal Carotid Arteries: Minimal atherosclerotic calcification is seen in the right internal caroti d artery. The left internal carotid artery is unremarkable. There is no evidence of occlusion, aneu rysm or significant stenosis. Anterior Cerebral Arteries: Right: No aneurysm, occlusion or significant stenosis. 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 Th e right anterior cerebral artery receives its blood flow via the anterior communicating artery. Left: No aneurysm, occlusion or significant stenosis. Middle Cerebral Arteries: Right: No aneurysm, occlusion or significant stenosis. Left: No aneurysm, occlusion or significant stenosis. Posterior Cerebral Arteries: Right: No aneurysm, occlusion or significant stenosis. Left: No aneurysm, occlusion or significant stenosis. The left posterior cerebral artery is fed main ly via the posterior communicating artery. Vertebral Arteries: Right: No aneurysm, occlusion or significant stenosis. Left: No aneurysm, occlusion or significant stenosis. Basilar Artery: No aneurysm, occlusion or significant stenosis. IMPRESSION: 1. No large vessel occlusion or significant stenosis on the CT angiography of the head. 2. No acute intracranial process. 3. No occlusion or significant stenosis on the CT angiography of the neck. RADIATION DOSE DELIVERED: 2,098.41mGy.cm Total DLP DATA REPOSITORY: All CT scans at this facility are submitted to the National Radiology Data Registry (NRDR) Dose Index Registry (DIR) with the [employer] (ACR). RADIATION OPTIMIZATION: All CT scans at this facility use at least one of these dose optimization te chniques: automated exposure control; mA and/or kV adjustment per patient size (includes targeted exa ms where dose is matched to clinical indication); or iterative reconstruction.
[2024-05-20 14:11] LABS: Abs Immature Grans 0.02 10^3/uL (0.0-0.06); Absolute Basophil Count 0.02 10^3/uL (0.0-0.2); Absolute Lymphocyte Count 1.05 10^3/uL (1.2-3.4); Absolute Monocyte Count 0.35 10^3/uL (0.1-0.8); Absolute Neutrophil Count 4.96 10^3/uL (1.2-6.7); Basophils % 0.3 %; HCT 43.2 % (36.0-46.0); Immature Grans % 0.3 %; Lymphocytes % 16.4 %; MCH 30.8 pg (27.0-33.0); MCHC 34.7 % (32.0-36.0); MCV 89 fL (80-95); MPV 10.1 fL (8.0-11.0); Monocytes % 5.5 %; Neutrophils % 77.5 %; Platelet Count 249 10^3/uL (130-400); RBC 4.87 10^6/uL (3.93-5.22); RDW 11.7 % (11.7-14.6); RDW-SD 37.2 fL
[2024-05-20 14:35] LABS: ALT 22 U/L (14-59); AST 13 U/L (15-37); Albumin 3.8 g/dL (3.4-5.0); Alkaline Phosphatase 68 U/L (46-116); Anion Gap 8.2 mmol/L (3-11); BUN 13 mg/dL (7-18); Bilirubin, Total 0.41 mg/dL (0.2-1.0); CO2 28.8 mmol/L (21.0-32.0); CREATININE 0.7 mg/dL (0.55-1.02); Calcium 9.3 mg/dL (8.5-10.1); Chloride 106 mmol/L (98-107); Estimated GFR 97.72 (mL/min/1.73m2); Glucose 110 mg/dL (74-106); Potassium 3.9 mmol/L (3.5-5.1); Sodium 143 mmol/L (136-145); TSH 0.84 uIU/mL (0.36-3.74); Total Protein 7.3 g/dL (6.4-8.2)
[2024-05-20] MEDS: Omnipaque 350 MG/ML 100 ML BTL IJ (14:54)
--- NOTE | 2024-05-20 14:55 | ED.GENADUL_ITS ---
Discharge Plan Disposition Patient Disposition: Home Condition: Stable Discharge Details Clinical Impression: Vertigo Primary Care Provider: [facility] ED Provider: Diana Ochoa Home Meds and New Rx's Prescriptions: New meclizine 25 mg tablet 25 mg PO TID PRN (Reason: dizziness) Qty: 20 0RF guaifenesin 200 mg/5 mL liquid 600 mg PO BID Qty: 118 0RF Flonase Sensimist 27.5 mcg/actuation spray,suspension 1 spray intranasal DAILY Qty: 9.1 0RF Rx Instructions: into each nostril No Action calcium carbonate-vitamin D3 1 EACH tablet 1 tab PO DAILY L.acidoph, paracasei,B. lactis 1 EACH capsule 1 cap PO DAILY cetirizine 10 mg Tablet 10 mg PO DAILY ondansetron 4 mg tablet,disintegrating 4 mg PO Q8H PRN Discharge Instructions Instructions: Vertigo ED Additional Instructions: * Take meclizine as needed for dizziness and nausea * start Flonase and Mucinex. * Follow-up with ENT for evaluation of ongoing symptoms * make sure to drink plenty of water * HPI General Date/Time Provider Initiated Documentation: 05/20/24 13:00 . Limitations to Documentation: no limitations . Information obtained by: patient . HPI Narrative: 63-year-old female without significant past medical history presents for evaluation of dizziness. She reports that for the last several days she has been having some dizziness in the morning. She has been drinking a glass of water and getting up more slowly and this has been helpful and the dizziness does not return throughout the day. She reports that last night the dizziness was present when she got up to go to the bathroom. It was severe and she felt like she could not walk. She had several episodes of dry heaving and was unable to make it back to her bed without assistance. She states that it is not resolved. Not associated with headache though she does have some pain in the back of her neck. She reports sinus congestion. She denies decreased hearing or ear ringing. She denies significant difficulty with walking at this time. Related Data Home Medications ?Medication ?Instructions ?Recorded ?Confirmed L.acidoph, paracasei,B. lactis 10 1 cap PO DAILY 07/14/15 05/20/24 billion cell capsule calcium 1,000 mg (as 1 tab PO DAILY 07/14/15 05/20/24 carbonate)-vitamin D3 20 mcg (800 unit) tablet cetirizine 10 mg tablet 10 mg PO DAILY 11/10/18 05/20/24 fluticasone furoate 27.5 1 spray intranasal DAILY #9.1 mL 05/20/24 mcg/actuation nasal spray,suspension (Flonase Sensimist) guaifenesin 200 mg/5 mL oral liquid 600 mg (15 mL) PO BID #118 mL 05/20/24 meclizine 25 mg tablet 25 mg PO TID PRN dizziness #20 tabs 05/20/24 ondansetron 4 mg disintegrating 4 mg PO Q8H PRN 05/20/24 05/20/24 tablet Previous Rx's ?Medication ?Instructions ?Recorded fluticasone furoate 27.5 1 spray intranasal DAILY #9.1 mL 05/20/24 mcg/actuation nasal spray,suspension (Flonase Sensimist) guaifenesin 200 mg/5 mL oral liquid 600 mg (15 mL) PO BID #118 mL 05/20/24 meclizine 25 mg tablet 25 mg PO TID PRN dizziness #20 tabs 05/20/24 Allergies Allergy/AdvReac Type Severity Reaction Status Date / Time levofloxacin AdvReac Unknown Agitation Verified 05/20/24 13:22 Sulfa (Sulfonamide AdvReac Unknown Headache Verified 05/20/24 13:22 Antibiotics) General Stated Complaint: Dizzy/Sync WALDO: 3 Exam Narrative Exam Narrative: Review of Systems: All systems reviewed & are unremarkable except as noted in HPI and below Well-developed, no acute distress NCAT PERRL, normal conjunctiva no nystagmus Bilateral TMs without effusion RRR Unlabored respiratory effort clear bilaterally Nondistended abdomen no focal neurologic deficits, normal finger-nose, no dysmetria, no facial asymmetry, good strength throughout, normal gait without ataxia Appropriate mood and affect Course Vital Signs Vital signs: Vital Signs Temperature 37.0 C 05/20/24 13:16 Pulse 93 H 05/20/24 13:16 Respiratory Rate 20 05/20/24 13:16 Blood Pressure 161/102 H 05/20/24 13:16 Pulse Oximetry 94 05/20/24 13:16 Temperature 37.0 C 05/20/24 13:16 Pulse 70 05/20/24 14:32 Pulse 85 05/20/24 14:27 Respiratory Rate 12 05/20/24 14:27 Respiratory Effort Normal, Non-Labored 05/20/24 14:03 Respiratory Depth Normal 05/20/24 14:03 Respiratory Pattern Normal 05/20/24 14:03 Blood Pressure 147/74 H 05/20/24 14:32 Blood Pressure Mean 116 05/20/24 14:27 Pulse Oximetry 96 05/20/24 14:27 Pain Level 0 05/20/24 13:16 Comment standing 05/20/24 14:27 Lab/Test Results Lab/Test Results: Laboratory Tests Range/Units 05/20/24 14:00 WBC (4.4-10.8) 10^3/uL 6.40 RBC (3.93-5.22) 10^6/uL 4.87 Hgb (11.2-15.7) g/dL 15.0 Hct (36.0-46.0) % 43.2 MCV (80-95) fL 89 MCH (27.0-33.0) pg 30.8 MCHC (32.0-36.0) % 34.7 RDW (11.7-14.6) % 11.7 Plt Count (130-400) 10^3/uL 249 MPV (8.0-11.0) fL 10.1 Immature Gran % % 0.3 Neutrophils % % 77.5 Lymphocytes % % 16.4 Monocytes % % 5.5 Eosinophils % % 0.0 Basophils % % 0.3 Nucleated RBC % (0.0-0.3) % 0.0 Absolute Neutrophils (1.2-6.7) 10^3/uL 4.96 Absolute Lymphocytes (1.2-3.4) 10^3/uL 1.05 L Absolute Monocytes (0.1-0.8) 10^3/uL 0.35 Absolute Eosinophils (0.0-0.7) 10^3/uL 0.00 Absolute Basophils (0.0-0.2) 10^3/uL 0.02 Sodium (136-145) mmol/L 143 Potassium (3.5-5.1) mmol/L 3.9 Chloride (98-107) mmol/L 106 Carbon Dioxide (21.0-32.0) mmol/L 28.8 Anion Gap (3-11) mmol/L 8.2 BUN (7-18) mg/dL 13 Creatinine (0.55-1.02) mg/dL 0.7 Est GFR (CKD-EPI 2020) (mL/min/1.73m2) 97.72 Glucose (74-106) mg/dL 110 H Calcium (8.5-10.1) mg/dL 9.3 Total Bilirubin (0.2-1.0) mg/dL 0.41 AST (15-37) U/L 13 L ALT (14-59) U/L 22 Alkaline Phosphatase (46-116) U/L 68 Total Protein (6.4-8.2) g/dL 7.3 Albumin (3.4-5.0) g/dL 3.8 TSH (0.36-3.74) uIU/mL 0.84 Medical Decision Making Emergent evaluation of dizziness. Initial differential includes vertigo, dehydration, electrolyte derangement. Low suspicion for stroke given the lack of our neurologic findings consistent with a central process. She is complaining of some posterior headache. Plan for lab work, orthostatic vital signs, CTA imaging of head and neck will be obtained. Will give a dose of mec lizine and reassess. Orthostatic vital signs without significant change. Lab work reviewed. There is no leukocytosis or anemia. Electrolytes are without derangement. Mild hyperglycemia. Normal thyroid function. EKG reviewed and independently interpreted: Sinus 79 normal axis no STEMI CT imaging does not reveal mass, vertebral artery stenosis or occlusion. Will discharge with meclizine. Given chronic sinus issues will start Flonase and Mucinex. I have referred to ENT for follow-up. Recommend close follow-up with PCP as well. Return precautions advised Quality:SDOH Health Related Social Needs: No Data to Display PFSH All Active Problems (Updated 05/20/24 @ 16:10 by Diana Ochoa MD) Vertigo (Acute) Plantar fasciitis, bilateral (Acute) Osteoarthritis of right knee (Acute) Left ureteral stone (Acute) Medical History Sleep apnea Osteopenia Kidney stone Surgical History Hx of wisdom tooth extraction section Family History Mother Osteoporosis Father Cancer Hypertension Brother FHx: mental illness Social History Smoking/Tobacco Use Status: Never Smoking risk assessment performed?: Yes Alcohol Intake: never Drug use: Never Substance use type: does not use Housing: house Do you feel safe at home: Yes Do you feel safe in your relationship?: Yes
[2024-05-20] MEDS: Normal Saline - Diluent 50 ML VIAL IJ (14:56)
[2024-05-20 15:20] LABS: Bilirubin Negative (Negative); Blood Negative (Negative); Clarity Clear (Clear); Glucose Negative (Negative); Ketones Trace mg/dL (Negative); Leukocyte Esterase Negative (Negative); Nitrite Negative (Negative); Urobilinogen 0.2 mg/dL (Up to 0.2)
[2024-05-20] MEDS: Meclizine 25 MG TAB PO (16:13)
== END 2024-05-20 16:48 | disposition home or self-care (01) ==
PROVIDERS: Emergency Provider Emergency Medicine; PCP Physician Assistant
DX: R42 Dizziness and giddiness (principal); R11.0 Nausea
CPT/HCPCS: 36415; 70496; 70498; 80053; 93005; 99285; 81003; 84443; 85025; 93010; 99284; J3490

== ENCOUNTER 2024-08-22 02:47 | Outpatient (CLI) | payer OTHER, SELFPAY ==
--- NOTE | 2024-08-22 | DI.DEXA_ITS ---
Exam(s) XR DEXA BONE DENSITY W/WO EMELINA EXAM: XR DEXA BONE DENSITY W/WO EMELINA CLINICAL HISTORY: OSTEOPENIA, M85.80 OTHER SPECIFIED DISORDERS BONE DENSITY AND STRUCTURE TECHNIQUE: Hologic Horizon C densitometer analysis of left hip, lumbar spine and left forearm. Lat eral survey image of the thoracic and lumbar spine. COMPARISON: No exams were available for comparison FINDINGS: Lateral view of the thoracic and lumbar spine shows no evidence of compression fractures. Bone mineral density measurements of the lumbar spine correspond to a total T-score of 2.4, in the o steopenic range Bone mineral density measurements of the left hip correspond to a total T-score of -2.0. The femora l neck T-score is -2.4, in the osteopenic range.. Theleft forearm bone mineral density measurements correspond to a T-score of the distal 3rd of -1.6, in the osteopenic range. IMPRESSION: Osteopenia of the spine, hip and forearm.
== END 2024-08-22 03:07 ==
PROVIDERS: PCP Physician Assistant; Visit Provider Physician Assistant
DX: M85.89 Other specified disorders of bone density and structure, multiple sites (principal)
CPT/HCPCS: 77080

== ENCOUNTER 2025-05-14 16:22 | Outpatient (REF) | payer OTHER, SELFPAY ==
[2025-05-14 15:54] LABS: ALT 20 U/L (14-59); AST 17 U/L (15-37); Albumin 3.9 g/dL (3.4-5.0); Alkaline Phosphatase 79 U/L (46-116); Anion Gap 9.9 mmol/L (3-11); BUN 16 mg/dL (7-18); Bilirubin, Total 0.4 mg/dL (0.2-1.0); CO2 28.1 mmol/L (21.0-32.0); Calcium 9.4 mg/dL (8.5-10.1); Chloride 102 mmol/L (98-107); Cholesterol 238 mg/dL (<200); Glucose 105 mg/dL (74-106); HDL Cholesterol 66 mg/dL (>or=50); Potassium 4.0 mmol/L (3.5-5.1); Sodium 140 mmol/L (136-145); Total Protein 7.5 g/dL (6.4-8.2)
[2025-05-14 16:03] LABS: Hemoglobin A1C 5.9 % (<5.7)
== END 2025-05-14 16:23 | disposition home or self-care (01) ==
LOC: NCHCN 16:22
PROVIDERS: PCP Physician Assistant; Visit Provider Physician Assistant
DX: R73.03 Prediabetes (principal); E78.5 Hyperlipidemia, unspecified
CPT/HCPCS: 80053; 80061; 83036

== ENCOUNTER → 2025-05-26 14:50 | Outpatient (CLI) | payer OTHER, SELFPAY ==
--- NOTE | 2025-05-26 | DI.RAD_ITS ---
Exam(s) XR KNEE RT 3V AP,LAT,ELISABETH EXAM: XR KNEE RT 3V AP,LAT,ELISABETH CLINICAL HISTORY: rt knee pain, M25.561. TECHNIQUE: 2D digital imaging was performed. COMPARISON: CR XR KNEE RT 3V AP,LAT,ELISABETH from 11/22/2023 FINDINGS: 3 views No evidence of acute fracture. Small joint effusion noted. Moderate degenerative changes are again evident in the medial and patellofemoral compartments. The lateral compartment exhibits normal height but there are few small calcific densities in the lateral compartment noted which may be a small loose intra-articular bodies. Similar to previous. Bone density normal. No osseous lesions evident. No IMPRESSION: Degenerative changes in the medial patellofemoral compartments. There appear to be small calcified loose bodies in the lateral compartment. DATA REPOSITORY: RADIATION DOSE DELIVERED:
== END ==
LOC: DI 14:50
PROVIDERS: PCP Physician Assistant; Visit Provider Physician Assistant
DX: M25.561 Pain in right knee (principal); M17.11 Unilateral primary osteoarthritis, right knee
CPT/HCPCS: 73562

== ENCOUNTER → 2025-05-27 01:57 | Outpatient (CLI) | payer OTHER, SELFPAY ==
--- NOTE | 2025-05-27 07:51 | DI.MAMMO_ITS ---
Exam(s) MAMMO SCREENING EXAM: MAMMO SCREENING CLINICAL HISTORY: SCREENING, Z12.31 TECHNIQUE: Mammograms were interpreted according to the usual protocol including computer analysis with CAD system, tomosynthesis and C-view imaging. COMPARISON: 2019 through 2022 FINDINGS: The breasts are composed of scattered fibroglandular densities, Breast Density category B. No suspicious masses or suspicious microcalcifications are seen. No skin thickening or abnormal axillary lymph nodes are seen. There has been no significant change from prior exams. IMPRESSION: BI-RADS Category 1, Negative mammogram Yearly screening mammography is recommended. Breast Density - Category B - There are scattered areas of fibroglandular density. Breast density Category C or D implies that the patient has dense breast tissue. Dense breast tissue can make it harder to find cancer on a mammogram. Dense breast tissue is also associated with an increased risk of breast cancer. This information about the result of the mammogram report was provided to the patient to raise their awareness. Use this report when you speak with the patient about their risks for breast cancer, which includes their family history. At that time, you may recommend additional screening tests (Ultrasound or MRI) as these tests may add significant information. A negative radiographic report should not delay biopsy if a dominant or clinically suspicious mass is present. Up to ten percent of cancers are not identified on mammography. A negative report may reinforce clinical impression. Adenosis and dense breasts may obscure an underlying neoplasm. False positive reports average 6 to 10%. Patient will receive a letter notifying them of these results.
== END ==
PROVIDERS: PCP Physician Assistant; Visit Provider Physician Assistant
DX: Z12.31 Encounter for screening mammogram for malignant neoplasm of breast (principal); R92.323 Mammographic fibroglandular density, bilateral breasts
CPT/HCPCS: 77063; 77067